=== PATIENT | male | born 1970 | race African-American/Black ===

== ENCOUNTER 2022-12-18 22:00 | Inpatient (IN) | payer OTHER ==
[2022-12-18 22:34] VITALS: BMI 22.9
[2022-12-18] MEDS ORDERED: cloNIDine HCL 0.1 MG TABLET PO ONE (22:41)
[2022-12-18] MEDS ORDERED: POLYETHYLENE GLYCOL (HEALTHYLAX) 3350 17 GM PACKET PO PRN (22:43)
[2022-12-18] MEDS ORDERED: guaiFENesin 600 MG TABLET.ER (FP) PO PRN (22:43)
[2022-12-18] MEDS ORDERED: NICOTINE POLACRILEX 2 MG GUM BUC PRN (22:43)
[2022-12-18] MEDS ORDERED: NALOXONE HCL 0.4 MG/ML VIAL IM PRN (22:43)
[2022-12-18] MEDS ORDERED: MAGNESIUM HYDROX 2400MG/30ML ORAL SUSPENSION 30 ML CUP PO PRN (22:43)
[2022-12-18] MEDS ORDERED: IBUPROFEN 400 MG TABLET (FP) PO PRN (22:43)
[2022-12-18] MEDS ORDERED: MAG HYDROX/AL HYDROX/SIMETH 30 ML UNIT-DOSE CUP PO PRN (22:43)
[2022-12-18] MEDS ORDERED: BISMUTH SUBSALICYLATE 524 MG/30 ML PO PRN (22:43)
[2022-12-18] MEDS ORDERED: P-EPHED 60MG/TRIPROLIDI 2.5MG TABLET PO PRN (22:43)
[2022-12-18] MEDS ORDERED: DICYCLOMINE HCL 10 MG CAPSULE PO PRN (22:43)
[2022-12-18] MEDS ORDERED: NALOXONE HCL (KLOXXADO) 8 MG SPRAY NS PRN (22:43)
[2022-12-18] MEDS ORDERED: METHOCARBAMOL 500 MG TABLET PO PRN (22:43)
[2022-12-18] MEDS ORDERED: ONDANSETRON *ODT* 4 MG TABLET SL PRN (22:43)
[2022-12-18] MEDS ORDERED: methaDONE HCL 10 MG TABLET (FOR DETOX USE ONLY) PO ONE (22:43)
[2022-12-18] MEDS ORDERED: LOPERAMIDE HCL 2 MG CAPSULE PO PRN (22:43)
[2022-12-18] MEDS ORDERED: BENZOCAINE/MENTHOL (CHLORASEPTIC ) LOZENGE MM PRN (22:43)
[2022-12-18] MEDS ORDERED: BENZONATATE 200 MG CAPSULE PO PRN (22:43)
[2022-12-18] MEDS ORDERED: METHOCARBAMOL 500 MG TABLET ONE (23:27)
[2022-12-18] MEDS ORDERED: IBUPROFEN 600 MG TABLET (FP) PO ONE (23:28)
[2022-12-18] MEDS: IBUPROFEN 600 MG TABLET (FP) PO PRN (23:35)
[2022-12-18] MEDS ORDERED: cloNIDine HCL 0.1 MG TABLET ONE (23:53)
[2022-12-19] MEDS ORDERED: methaDONE HCL 10 MG TABLET (FOR DETOX USE ONLY) PO ONE ×2 (04:47→10:00)
[2022-12-19] MEDS: cloNIDine HCL 0.1 MG TABLET PO PRN ×2 (05:45→13:51)
[2022-12-19] MEDS ORDERED: cloNIDine HCL 0.1 MG TABLET PO ONE (07:03)
[2022-12-19] MEDS: LIDOCAINE 5% TOPICAL PATCH TP SCH (10:22)
[2022-12-19] MEDS: PRENATAL VITAMINS W/ FOLIC ACID TABLET (FP) PO SCH (10:22)
[2022-12-19] MEDS: NICOTINE 21 MG/24 HOURS TOPICAL PATCH TD SCH (10:23)
[2022-12-19 10:59] LABS: POTASSIUM 4.2 mmol/L (3.5-5.1)
[2022-12-19 11:01] LABS: CALCIUM 9.6 mg/dL (8.5-10.1)
[2022-12-19 11:02] LABS: BLOOD UREA NITROGEN 21.3 mg/dL (7-18)
[2022-12-19 11:03] LABS: HEMATOCRIT 43.8 % (35.4-49); HEMOGLOBIN 14.5 GM/dL (11.7-16.9); MCH 28.9 pg (25.7-33.7); MEAN CELL VOLUME 87.6 fl (80-96); MEAN PLT VOLUME 9.5 fl (7.5-11.1); PLATELET COUNT 277 10^3/uL (134-434); RDW 13.8 % (11.9-15.9); WHITE BLOOD COUNT 7.5 K/mm3 (4.0-10.0)
[2022-12-19 11:05] LABS: CREATININE 1.5 mg/dL (0.55-1.3)
[2022-12-19 11:07] LABS: BILIRUBIN,TOTAL 0.9 mg/dL (0.2-1)
[2022-12-19] MEDS: LIDOCAINE PATCH REMOVAL MC SCH (22:31)
[2022-12-19] MEDS: THIAMINE HCL 100 MG TABLET (FP) PO SCH (22:40)
[2022-12-19] MEDS: diazePAM 5 MG TABLET PO PRN (22:40)
[2022-12-19] MEDS: MELATONIN 5 MG TABLETS PO SCH (22:40)
[2022-12-20] MEDS: cloNIDine HCL 0.1 MG TABLET PO PRN ×2 (05:49→12:26)
[2022-12-20] MEDS ORDERED: methaDONE HCL 10 MG TABLET (FOR DETOX USE ONLY) PO ONE (10:00)
[2022-12-20] MEDS: NICOTINE 21 MG/24 HOURS TOPICAL PATCH TD SCH (10:32)
[2022-12-20] MEDS: PRENATAL VITAMINS W/ FOLIC ACID TABLET (FP) PO SCH (10:32)
[2022-12-20] MEDS: LIDOCAINE 5% TOPICAL PATCH TP SCH (10:34)
[2022-12-20] MEDS: diazePAM 5 MG TABLET PO PRN ×2 (12:26→22:08)
[2022-12-20] MEDS: ACETAMINOPHEN 325 MG TABLET (FP) PO PRN (20:33)
[2022-12-20] MEDS: THIAMINE HCL 100 MG TABLET (FP) PO SCH (22:06)
[2022-12-20] MEDS: IBUPROFEN 600 MG TABLET (FP) PO PRN (22:07)
[2022-12-20] MEDS: MELATONIN 5 MG TABLETS PO SCH (22:07)
[2022-12-20] MEDS: LIDOCAINE PATCH REMOVAL MC SCH (22:09)
[2022-12-21] MEDS: diazePAM 5 MG TABLET PO PRN ×3 (05:39→22:16)
[2022-12-21] MEDS: ACETAMINOPHEN 325 MG TABLET (FP) PO PRN ×2 (05:45→16:22)
[2022-12-21] MEDS: IBUPROFEN 600 MG TABLET (FP) PO PRN (08:45)
[2022-12-21] MEDS: NICOTINE 21 MG/24 HOURS TOPICAL PATCH TD SCH (10:23)
[2022-12-21] MEDS: PRENATAL VITAMINS W/ FOLIC ACID TABLET (FP) PO SCH (10:24)
[2022-12-21] MEDS: LIDOCAINE 5% TOPICAL PATCH TP SCH (10:25)
[2022-12-21 10:56] LABS: EPI CELLS 10 /uL (0-25.1); HYALINE CASTS 5 /uL (0-3.1); URINE APPEARANCE CLOUDY; URINE BACTERIA 8 /uL (0-1359); URINE BILIRUBIN NEGATIVE (NEGATIVE); URINE COLOR YELLOW; URINE GLUCOSE (UA) NEGATIVE (NEGATIVE); URINE KETONE TRACE (NEGATIVE); URINE LEUK ESTERASE NEGATIVE (NEGATIVE); URINE NITRITE NEGATIVE (NEGATIVE); URINE PROTEIN 1+ (NEGATIVE); URINE RBC 40 /uL (0-23.9); URINE UROBILINOGEN 0.2 mg/dL (0.2-1.0); URINE WBC 20 /uL (0-25.8)
[2022-12-21] MEDS: cloNIDine HCL 0.1 MG TABLET PO PRN ×2 (19:05→22:16)
[2022-12-21] MEDS: LIDOCAINE PATCH REMOVAL MC SCH (22:15)
[2022-12-21] MEDS: MELATONIN 5 MG TABLETS PO SCH (22:15)
[2022-12-21] MEDS: THIAMINE HCL 100 MG TABLET (FP) PO SCH (22:15)
[2022-12-22] MEDS: ACETAMINOPHEN 325 MG TABLET (FP) PO PRN ×3 (07:59→22:19)
[2022-12-22] MEDS ORDERED: methaDONE HCL 10 MG TABLET (FOR DETOX USE ONLY) PO ONE (10:00)
[2022-12-22] MEDS: PRENATAL VITAMINS W/ FOLIC ACID TABLET (FP) PO SCH (10:14)
[2022-12-22] MEDS: LIDOCAINE 5% TOPICAL PATCH TP SCH (10:14)
[2022-12-22] MEDS: NICOTINE 21 MG/24 HOURS TOPICAL PATCH TD SCH (10:15)
[2022-12-22] MEDS: cloNIDine HCL 0.1 MG TABLET PO PRN ×2 (11:01→22:20)
[2022-12-22] MEDS: IBUPROFEN 600 MG TABLET (FP) PO PRN (17:55)
[2022-12-22] MEDS ORDERED: SUVOREXANT 10 MG TABLET PO PRN (22:00)
[2022-12-22] MEDS: THIAMINE HCL 100 MG TABLET (FP) PO SCH (22:22)
[2022-12-22] MEDS: LIDOCAINE PATCH REMOVAL MC SCH (22:24)
[2022-12-23] MEDS: ACETAMINOPHEN 325 MG TABLET (FP) PO PRN (05:42)
[2022-12-23] MEDS: IBUPROFEN 600 MG TABLET (FP) PO PRN (08:50)
[2022-12-23] MEDS: PRENATAL VITAMINS W/ FOLIC ACID TABLET (FP) PO SCH (09:34)
[2022-12-23] MEDS: NICOTINE 21 MG/24 HOURS TOPICAL PATCH TD SCH (09:34)
[2022-12-23] MEDS: cloNIDine HCL 0.1 MG TABLET PO PRN (09:34)
[2022-12-23] MEDS: LIDOCAINE 5% TOPICAL PATCH TP SCH (09:34)
[2022-12-23 09:39] VITALS: BP 155/101; PULSE 84; RESP 17; TEMP 98.1
== END 2022-12-23 10:40 | disposition home or self-care (01) | DRG 773 ==
LOC: YASAS 22:00 → Y6N 12-19 03:19
PROVIDERS: ADMIT Allergy & Immunology; ATTEND Allergy & Immunology
PROC: HZ2ZZZZ Detoxification Services for Substance Abuse Treatment (ICD-10-PCS; principal; 2022-12-19)
DX: F11.23 Opioid dependence with withdrawal (principal); F14.20 Cocaine dependence, uncomplicated; F17.210 Nicotine dependence, cigarettes, uncomplicated; F19.282 Other psychoactive substance dependence with psychoactive substance-induced sleep disorder; F19.24 Other psychoactive substance dependence with psychoactive substance-induced mood disorder; M54.50 Low back pain, unspecified; G89.29 Other chronic pain; R73.03 Prediabetes; Z56.0 Unemployment, unspecified; Z59.00 Homelessness unspecified
CPT/HCPCS: 36415; 80053; 81003; 85027; 86780; 93005; 93010; C9803-CS; U0003; U0005